=== PATIENT | female | born 2000 | race Caucasian/White ===

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

== ENCOUNTER 2019-01-12 19:37 | Emergency (ER) | payer OTHER, MEDICAID, SELFPAY ==
[2019-01-12 20:07] VITALS: BP 130/86; PULSE 107; RESP 18; TEMP 37.2; O2SAT 100; BMI 19.5
[2019-01-12] MEDS: ONDANSETRON 4 MG ODT SL (20:58)
[2019-01-12] MEDS: KETOROLAC 60 MG/2 ML VIAL 30 MG IM (20:58)
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
[2019-01-12 21:12] VITALS: BP 140/87; PULSE 90; RESP 16; O2SAT 98
== END 2019-01-12 21:12 | disposition home or self-care (01) ==
PROVIDERS: Emergency Provider Nurse Practitioner
DX: H72.92 Unspecified perforation of tympanic membrane, left ear (principal); S09.90XA Unspecified injury of head, initial encounter; Y04.2XXA Assault by strike against or bumped into by another person, initial encounter
CPT/HCPCS: 96372; 99282; 99283; J1885

== ENCOUNTER 2020-11-21 20:07 | Emergency (ER) | payer OTHER, MEDICAID, SELFPAY ==
[2020-11-21 20:19] VITALS: BP 123/78; PULSE 102; RESP 99; TEMP 36.6; O2SAT 98; BMI 21.9
--- NOTE | 2020-11-21 22:06 | ED.GENADULT ---
HPI - General Adult General Chief complaint: Ear Stated complaint: LIQUID OUT OF LEFT EAR PAIN Time Seen by Provider: 11/21/20 21:53 Source: patient Mode of arrival: Ambulatory Limitations: no limitations History of Present Illness HPI narrative: Otherwise healthy 20-year-old female here for evaluation of a clear liquid coming out of her left urine discomfort. She has had multiple ear infections in the past. No fevers. Has not tried anything for symptoms prior to arrival. Related Data Previous Rx's Medication Instructions Recorded [id number] 3.5 See Rx Instructions .ROUTE 11/21/20 mg/mL-10,000 unit/mL-0.1% eye drops .COMPLEX #5 ml Allergies Allergy/AdvReac Type Severity Reaction Status Date / Time No Known Drug Allergies Allergy Verified 01/12/19 20:07 Review of Systems Constitutional Constitutional: Denies chills, Denies fatigue and Denies fever(s) Eyes Eyes: Reports system reviewed and no additional complaints, except as documented ENT Ears, Nose, Mouth, and Throat: Denies vertigo, Denies dizziness, Denies sinus pressure and Denies sore throat Comments: Drainage from left ear Respiratory Respiratory: Reports system reviewed and no additional complaints, except as documented Integumentary/Breasts Skin/Breast: Reports system reviewed and no additional complaints, except as documented Neurologic Neurologic: Denies vertigo and Denies dizziness Endocrine Endocrine: Denies fatigue Hematologic/Lymphatic On Anticoagulants: No Patient History Medical History Otitis media Surgical History No significant past surgical history Social History Smoking Status: Current every day smoker Smoking Status: Current every day smoker tobacco type: vaping alcohol intake frequency: a few times a month Substance Use Type: marijuana Exam Initial Vital Signs Initial Vital Signs: Vital Signs Temperature 97.8 F 11/21/20 20:19 Pulse Rate 102 H 11/21/20 20:19 Respiratory Rate 99 H 11/21/20 20:19 Blood Pressure 123/78 11/21/20 20:19 Pulse Oximetry 98 11/21/20 20:19 Const General: cooperative and comfortable HENMT Ears: external ears normal, TM normal on the right and EAC abnormal erythema on the left and EAC tenderness on the left; Negative for no edema Nose: external nose normal Face and sinus: normal facial exam Mouth: oral mucosae normal Resp Effort & Inspection: normal respiratory effort Skin General: no rashes or lesions noted Neuro General: patient alert, patient awake, patient oriented x3 and moves all extremities Extrem General: normal to inspection Psych Appearance: grossly normal Course Vital Signs Vital signs: Vital Signs - 8 hr // 22:17 Pulse Rate 68 Respiratory Rate 17 Blood Pressure 132/74 Pulse Oximetry 100 Medical Decision Making MDM Narrative Medical decision making narrative: We he does have a slightly red who tender left external auditory canal. Given her history of a clear drainage from this area we will treat her as a otitis externa. The ear drum the left is intact. There is no erythema. No signs of otitis media. The right side unremarkable. Was discharged home with a prescription for antibiotics. She was given strict return precautions and follow-up instructions. She expressed understanding and agreement. Discharge Plan Departure Patient Disposition: Home Clinical Impression: Otitis externa Instructions: DI for Otitis Externa Activity Restrictions/Additional Instructions: Recommend that you use the ear drops as directed. Contact your primary doctor for follow-up. Return to the emergency department for any new or worsening symptoms Prescriptions: New neomycin-polymyxin B-dexameth 3.5mg/mL-10,000 unit/mL-0.1 % drops,suspension See Rx Instructions .ROUTE .COMPLEX Qty: 5 RF: 0
[2020-11-21 22:17] VITALS: BP 132/74; PULSE 68; RESP 17; O2SAT 100
== END 2020-11-21 22:18 | disposition home or self-care (01) ==
PROVIDERS: Emergency Provider Emergency Medicine
DX: H60.92 Unspecified otitis externa, left ear (principal)
CPT/HCPCS: 99281